=== PATIENT | male | born 1975 | race Caucasian/White ===

== ENCOUNTER 2021-02-04 10:33 | Outpatient (CLI) | payer OTHER | END 2021-02-04 23:59 | disposition home or self-care (01) | LOC: 64 CT 10:33 | PROVIDERS: ATTEND Registered Nurse | DX: S92.909K Unspecified fracture of unspecified foot, subsequent encounter for fracture with nonunion (principal); S82.899K Other fracture of unspecified lower leg, subsequent encounter for closed fracture with nonunion; M79.89 Other specified soft tissue disorders; M19.072 Primary osteoarthritis, left ankle and foot; M19.071 Primary osteoarthritis, right ankle and foot; X58.XXXD Exposure to other specified factors, subsequent encounter | CPT/HCPCS: 73700 ==

== ENCOUNTER 2021-02-15 17:11 | Emergency (ER) | payer OTHER ==
[~2021-02-15] VITALS: Ht 188 cm; Wt 120.0 kg
[2021-02-15] MEDS ORDERED: OXYC-150 PO (18:09)
[2021-02-15] MEDS ORDERED: METH4TAB81 PO (18:56)
[2021-02-15 19:40] VITALS: BP 144/91
== END 2021-02-15 19:41 | disposition home or self-care (01) ==
LOC: ER 17:12
DX: M79.671 Pain in right foot (principal); G89.18 Other acute postprocedural pain; G89.29 Other chronic pain; Z98.890 Other specified postprocedural states; Z79.899 Other long term (current) drug therapy
CPT/HCPCS: 29515; 99283

== ENCOUNTER 2021-03-20 10:26 | Day surgery (SDC) | payer OTHER ==
[2021-03-13 16:27] LABS: CLARITY,URINE CLEAR (Clear); COLOR,URINE YELLOW (Yellow); GLUCOSE, URINE NEGATIVE (Neg); KETONES,URINE NEGATIVE (Neg); LEUKOCYTE ESTERASE ,URINE NEGATIVE (Neg); NITRITES, URINE NEGATIVE (Neg); OCCULT BLOOD,URINE SMALL (Neg); PH,URINE 5.5 (4.8-8.0); PROTEIN,URINE NEGATIVE (Neg); UROBILINOGEN,URINE 0.2 E.U/dL (0.2-1.0)
[2021-03-13 16:30] LABS: EOSINOPHILS # (AUTO) 0.1 X10'3 (0-0.9); EOSINOPHILS % (AUTO) 1.8 % (0-6); MEAN CORPUSCULAR VOLUME 92.7 FL (78-98); MONOCYTES # (AUTO) 0.5 X10'3 (0-0.9); NEUTROPHILS # (AUTO) 4.8 X10'3 (1.8-7.7); PRE OP HEMOGLOBIN 14.7 g/dL (14.0-17.9); UA COLLECTION TYPE NON-SPECIFIED
[2021-03-13 16:31] LABS: BACTERIA,URINE NONE SEEN /HPF (Neg); BASOPHILS % (AUTO) 0.6 % (0-1); LYMPHOCYTES % (AUTO) 26.5 % (21-51); MEAN CORPUSCULAR HEMOGLOBIN 32.3 PG (27.0-31.0); MEAN CORPUSCULAR HGB CONC 34.9 g/dL (33.0-36.5); MEAN PLATELET VOLUME 7.7 FL (7.4-10.4); MONOCYTES % (AUTO) 7.1 % (2-12); MUCUS STRANDS NONE SEEN /LPF (Neg); PRE OP HEMATOCRIT 42.2 % (42.0-52.0); PRE OP PLATELET COUNT 316 X10'3 (140-440); RBC,URINE 0-2 /HPF (0-2); RED BLOOD COUNT 4.55 X10'6 (4.70-6.10); RED CELL DISTRIBUTION WIDTH 13.3 % (11.5-14.5); SQUAMOUS EPITHELIAL CELL,UR FEW /LPF (FEW); WBC,URINE NONE SEEN /HPF (0-4)
[2021-03-13 16:42] LABS: ALBUMIN 3.8 G/DL (3.4-5.0); ALBUMIN/GLOBULIN RATIO 1.1 (1.1-1.5); ALKALINE PHOSPHATASE 74 IU/L (46-116); BLOOD UREA NITROGEN 14 MG/DL (7-18); BUN/CREATININE RATIO 15.9 (5.4-32.0); CHLORIDE 105 MMOL/L (99-107); CREATININE 0.88 MG/DL (0.60-1.10); PRE OP ALT 27 U/L (30-65); PRE OP ANION GAP 9 (8-16); PRE OP AST 15 U/L (10-37); PRE OP BILIRUB, TOTAL 0.3 MG/DL (0.0-1.0); PRE OP GLUCOSE 90 MG/DL (70-104); PRE OP POTASSIUM 3.8 MMOL/L (3.4-5.1); PRE OP SODIUM 142 MMOL/L (135-145); TOTAL CARBON DIOXIDE 28.2 MMOL/L (24-32); TOTAL PROTEIN 7.4 G/DL (6.4-8.2); eGFR > 90 ML/MIN
[2021-03-20] VITALS (8 sets, daily range): BP systolic 121–148; BP diastolic 78–95
[~2021-03-20] VITALS: Ht 188 cm; Wt 112.0 kg
[~2021-03-20 10:26] MED LIST: ESCI5TAB PO; HYDROmorphone/PF 0.2 MG/ML SYRINGE IV PRN; OXYC1TAB17 PO; acetaminophen 1,000mg/100ml IV 100 ML IV PRN; cefazolin/dext.iso 2gm/100ml IV ONE; famotidine 20mg tablet PO ONE; hydrALAZINE 20mg/ml inj. IV PRN; labetalol 20mg/4ml (5mg/ml) syringe IV PRN; meperidine/PF 25mg/ml syringe IV PRN; morphine 2 MG/ML inj. syringe IV PRN; morphine 4 MG/ML inj SYRINge IV PRN; ondansetron/PF 4mg/2ml inj IV PRN; proCHLORperazine 10 MG/2 ml inj IV PRN; ringers solution, lacted 1,000 ML IV SCH
--- NOTE | 2021-03-20 11:29 | NUR ---
PT. DECLINED SAFE FOR VALUABLES, PT. INFORMED NURSE THAT HE FORGOT TO DO THE ANTIMICROBIAL SHOWERS. NOTIFICATION LEFT FOR OR STAFF. Addendum: 03/20/21 at 1131 by Kelley Yoon RN Amended: Links added.
[2021-03-20] MEDS ORDERED: ROPIVAcaine 0.5% (5mg/ml) 30ml vial ONE ×2 (12:21→15:04)
[2021-03-20] MEDS ORDERED: oxyCODONE/APAP 10/325mg tablet PO ONE ×2 (14:50→20:00)
[2021-03-20] MEDS ORDERED: MIDAZolam 1 MG/ML 5ML VIAL ONE (14:59)
[2021-03-20] MEDS ORDERED: fentaNYL/PF 50MCG/1 ML 2ML syringe ONE (14:59)
[2021-03-20] MEDS ORDERED: ROPIVAcaine 0.2%/PF PUMP/bolus 545 ML POPLITEAL SCH (15:20)
[2021-03-20] MEDS ORDERED: morphine 4 MG/ML inj SYRINge IV PRN (15:20)
[2021-03-20] MEDS ORDERED: meperidine/PF 25mg/ml syringe IV PRN ×3 (15:20)
[2021-03-20] MEDS ORDERED: ondansetron/PF 4mg/2ml inj IV PRN (15:20)
[2021-03-20] MEDS ORDERED: morphine 2 MG/ML inj. syringe IV PRN (15:20)
[2021-03-20] MEDS ORDERED: ringers solution, lacted 1,000 ML IV SCH (15:20)
[2021-03-20] MEDS ORDERED: ROPIVAcaine 0.2% (10 MG/5 ML) BOLUS INJECTION POPLITEAL PRN (15:20)
[2021-03-20] MEDS ORDERED: proCHLORperazine 10 MG/2 ml inj IV PRN (15:20)
[2021-03-20] MEDS ORDERED: bacitracin 15gm ointment TP ONE (15:42)
[2021-03-20] MEDS ORDERED: propofol inj 20 ML IV ONE (19:37)
--- NOTE | 2021-03-20 19:41 | NUR ---
Received from OR via [facility] IN STABLE CONDITION , accompanied by Anesthesiologist DR. ROJAS and INSPECTOR BOILER report given by Anesthesiolsherri. Addendum: 03/20/21 at 2021 by Trena Sr RN Amended: Links added.
[2021-03-20] MEDS ORDERED: acetaminophen 1,000mg/100ml IV 100 ML IV ONE (20:00)
--- NOTE | 2021-03-20 21:01 | NUR ---
PT STATES PAIN IMPROVING, D/C INSTRUCTIONS GIVEN AND GONE OVER W/PT AND PTS WHO VERBALIZED UNDERSTANDING. PT D/CD TO HOME VIA W/C TO PRIVATE VEHICLE W/O INCIDENT. Addendum: 03/20/21 at 2114 by Kalli Conley RN Amended: Links added.
== END 2021-03-20 21:01 | disposition home or self-care (01) ==
LOC: PAS 10:26
PROVIDERS: ATTEND Podiatrist Foot & Ankle Surgery
DX: M21.41 Flat foot [pes planus] (acquired), right foot (principal); M25.374 Other instability, right foot; M19.071 Primary osteoarthritis, right ankle and foot; M96.0 Pseudarthrosis after fusion or arthrodesis; G89.18 Other acute postprocedural pain; F41.9 Anxiety disorder, unspecified; Z79.899 Other long term (current) drug therapy; Z87.891 Personal history of nicotine dependence; Z98.890 Other specified postprocedural states; Z72.89 Other problems related to lifestyle; Y83.8 Other surgical procedures as the cause of abnormal reaction of the patient, or of later complication, without mention of misadventure at the time of the procedure; Y82.8 Other medical devices associated with adverse incidents; Y92.89 Other specified places as the place of occurrence of the external cause
CPT/HCPCS: 20680; 20900; 27687; 28238; 28300; 28730; 36415; 64446; 64448; 73620; 76000; 76937; 80053; 81001; 82948; 85025; 93005; A6223; C1713; C1776; J0131; J1170; J2250; J2704; J2795; J3010; A4215; A4618; A6449; A7000; J7120

== ENCOUNTER 2022-01-01 14:02 | Emergency (ER) | payer OTHER ==
[~2022-01-01] VITALS: Ht 188 cm; Wt 105.0 kg
[~2022-01-01 14:02] MED LIST changes: -HYDROmorphone/PF 0.2 MG/ML SYRINGE IV PRN; -acetaminophen 1,000mg/100ml IV 100 ML IV PRN; -cefazolin/dext.iso 2gm/100ml IV ONE; -famotidine 20mg tablet PO ONE; -hydrALAZINE 20mg/ml inj. IV PRN; -labetalol 20mg/4ml (5mg/ml) syringe IV PRN; -meperidine/PF 25mg/ml syringe IV PRN; -morphine 2 MG/ML inj. syringe IV PRN; -morphine 4 MG/ML inj SYRINge IV PRN; -ondansetron/PF 4mg/2ml inj IV PRN; -proCHLORperazine 10 MG/2 ml inj IV PRN; -ringers solution, lacted 1,000 ML IV SCH
[2022-01-01 14:15] VITALS: BP 130/88
== END 2022-01-01 16:48 | disposition home or self-care (01) ==
LOC: ER 14:03
DX: S92.254A Nondisplaced fracture of navicular [scaphoid] of right foot, initial encounter for closed fracture (principal); M25.531 Pain in right wrist; G89.29 Other chronic pain; Z98.890 Other specified postprocedural states; Z79.899 Other long term (current) drug therapy; W01.0XXA Fall on same level from slipping, tripping and stumbling without subsequent striking against object, initial encounter; Y93.01 Activity, walking, marching and hiking; Y92.89 Other specified places as the place of occurrence of the external cause; Y99.8 Other external cause status
CPT/HCPCS: 29125; 99283

== ENCOUNTER 2023-08-08 20:03 | Emergency (ER) | payer OTHER ==
[~2023-08-08] VITALS: Ht 177.8 cm; Wt 90.9 kg
[2023-08-08 20:17] VITALS: BP 124/81; PULSE 81; RESP 16; TEMP 98.2; O2SAT 96
[2023-08-08 22:31] LABS: BASOPHILS % (AUTO) 0.4 % (0-1); EOSINOPHILS % (AUTO) 0.5 % (0-6); HEMATOCRIT 44.7 % (42.0-52.0); HEMOGLOBIN 15.4 g/dl (14.0-17.9); LYMPHOCYTES # (AUTO) 1.5 X10'3 (1.1-4.8); MEAN CORPUSCULAR HEMOGLOBIN 33.6 PG (27.0-31.0); MEAN CORPUSCULAR HGB CONC 34.5 g/dL (33.0-36.5); MEAN CORPUSCULAR VOLUME 97.5 FL (78-98); MEAN PLATELET VOLUME 6.6 FL (7.4-10.4); MONOCYTES # (AUTO) 0.4 X10'3 (0-0.9); MONOCYTES % (AUTO) 8.9 % (2-12); NEUTROPHILS # (AUTO) 2.4 X10'3 (1.8-7.7); NEUTROPHILS % (AUTO) 55.2 % (42-75); PLATELET COUNT 227 X10'3 (140-440); RED BLOOD COUNT 4.59 X10'6 (4.70-6.10); WHITE BLOOD COUNT 4.4 X10'3 (4.5-11.0)
[2023-08-08 22:43] LABS: ALANINE AMINOTRANSFERASE 124 U/L (12-78); ALBUMIN/GLOBULIN RATIO 0.8 (1.1-1.5); ALKALINE PHOSPHATASE 78 IU/L (46-116); ANION GAP 9 (8-16); ASPARTATE AMINO TRANSFERASE 158 U/L (10-37); BILIRUBIN,TOTAL 0.3 MG/DL (0.1-1.0); BLOOD UREA NITROGEN 8 MG/DL (7-18); BUN/CREATININE RATIO 8.9 (10.0-20.0); CALCIUM 7.5 MG/DL (8.5-10.1); CHLORIDE 107 MMOL/L (99-107); GLUCOSE 97 MG/DL (70-104); POTASSIUM 3.5 MMOL/L (3.5-5.1); SODIUM 145 MMOL/L (135-145); TOTAL PROTEIN 6.7 G/DL (6.4-8.2); eCRCL 105 ML/MIN; eGFR 90 ML/MIN
[2023-08-08 23:16] LABS: ACETAMINOPHEN < 2.0 UG/ML (10-30)
[2023-08-08] MEDS ORDERED: dexamethasone sod phosphate 10mg/ml inj IV STA (23:29)
[2023-08-08] MEDS ORDERED: normal saline 1000ML IV soln IVB ONE (23:30)
[2023-08-08] MEDS ORDERED: ketorolac tromethamine 15mg/ml inj. IV ONE (23:30)
[2023-08-08] MEDS ORDERED: LORazepam 2 mg/ml vial IV ONE (23:30)
[2023-08-08] MEDS ORDERED: ondansetron/PF 4mg/2ml inj IV ONE (23:30)
[2023-08-08 23:31] LABS: ETHANOL 379 MG/DL (<10)
[2023-08-08] MEDS ORDERED: ONDA4TAB12 PO (23:34)
[2023-08-08] MEDS ORDERED: DICY10CA88 PO (23:34)
[2023-08-08] MEDS ORDERED: normal saline 1000ml 1,000 ML IV ONE ×2 (23:35)
[2023-08-08] MEDS ORDERED: dicyclomine 10 MG capsule PO ONE (23:35)
--- NOTE | 2023-08-09 00:13 | NUR ---
iv dc'd pt being discharged dressing applied
== END 2023-08-09 00:15 | disposition home or self-care (01) ==
LOC: ER 20:04
DX: T50.995A Adverse effect of other drugs, medicaments and biological substances, initial encounter (principal); R53.1 Weakness; F10.129 Alcohol abuse with intoxication, unspecified; Y90.9 Presence of alcohol in blood, level not specified; Y92.89 Other specified places as the place of occurrence of the external cause
CPT/HCPCS: 36415; 71045; 80053; 80320; 80329; 85025; 96361; 96374; 96375; 99284; J1100; J1885; J2060; J2405; J7030